=== PATIENT | male | born 1935 | race Two or more races ===

== ENCOUNTER 2020-10-27 13:23 | Inpatient (IN) | payer MEDICARE, OTHER ==
[2020-10-27] VITALS (22 sets, daily range): BP systolic 116–161; BP diastolic 74–97
[~2020-10-27] VITALS: Ht 172.7 cm; Wt 64.0 kg
--- NOTE | 2020-10-27 13:47 | NUR ---
TELEMED STROKE REQUEST DONE
--- NOTE | 2020-10-27 14:00 | NUR ---
THE PATIENT IS [id number] FROM [facility] FOR NOTED L SIDED WEAKNESS AND MORE ALTERED. BG 177 UNKNOWN LKW. 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 THE PATIENT IS ASSESED BY ER MD, CALLED CODE STROKE, CT DONE, LAB DONE. AT THE BEDSIDE. WILL CONTINUE TO MONITOR.
[2020-10-27 14:06] LABS: BASOPHILS # (AUTO) 0.1 /CMM (0.0-0.2); BASOPHILS % (AUTO) 0.7 % (0.0-2.0); EOSINOPHILS % (AUTO) 0.1 % (0.0-6.0); HEMATOCRIT 36 % (39-51); LYMPHOCYTES # (AUTO) 1.5 /CMM (0.8-4.8); LYMPHOCYTES % (AUTO) 10.4 % (20.0-44.0); MEAN CORPUSCULAR HGB CONC 32 g/dl (31.0-36.0); MEAN CORPUSCULAR VOLUME 80 fL (80-96); MONOCYTES # (AUTO) 0.6 /CMM (0.1-1.30); MONOCYTES % (AUTO) 3.9 % (2.0-12.0); NEUTROPHILS # (AUTO) 12.2 /CMM (1.8-8.9); NEUTROPHILS % (AUTO) 84.9 % (43.0-81.0); PLATELET COUNT (AUTO) 304 /CMM (150-450); RED BLOOD CELL COUNT(AUTO) 4.53 MIL/uL (4.5-6.0); WHITE BLOOD COUNT (AUTO) 14.3 K/uL (4.3-11.0)
[2020-10-27 14:07] LABS: HEMOGLOBIN 11.6 g/dL (13.5-17.5)
[2020-10-27 14:14] LABS: CALCIUM, SERUM 9.9 mg/dL (8.5-10.1); CARBON DIOXIDE 30 mmol/L (21-32); CHLORIDE 101 mmol/L (98-107); CREATININE 1.3 mg/dL (0.6-1.3); GLUCOSE 172 mg/dL (74-106); POTASSIUM 3.8 mmol/L (3.5-5.1); SODIUM SERUM 140 mmol/L (136-145); UREA NITROGEN, BLOOD 20 mg/dL (7-18)
[2020-10-27] MEDS ORDERED: NICARDIPINE IN DEXTROSE,ISO-OS 200 ML IV ONE (14:19)
[2020-10-27 14:20] LABS: ALANINE AMINOTRANSFERASE 6 U/L (12-78); ALBUMIN 3.2 g/dL (3.4-5.0); ALKALINE PHOSPHATASE 77 U/L (46-116); ASPARTATE AMINOTRANSFERASE 9 U/L (15-37); BILIRUBIN,DIRECT 0.1 mg/dL (0.0-0.2); BILIRUBIN,TOTAL 0.5 mg/dL (0.2-1.0); TOTAL PROTEIN, SERUM 8.5 g/dL (6.4-8.2)
--- NOTE | 2020-10-27 14:28 | NUR ---
STARTED CARDENE NACL AT 5MG/HR. WILL CONTINUE TO MONITOR.
[2020-10-27] MEDS ORDERED: NICARDIPINE IN NACL, ISO-OSM 200 ML IV PRN (14:30)
[2020-10-27 14:37] LABS: SERUM AMMONIA < 10 umol/L (11-32)
--- NOTE | 2020-10-27 14:41 | NUR ---
COVID SWABS DONE AND SENT TO THE LAB.
--- NOTE | 2020-10-27 14:43 | NUR ---
ICU 261 ASSIGNED
[2020-10-27 14:51] LABS: CHOLESTEROL 183 mg/dL (<200); HDL CHOLESTEROL 43 mg/dL (40-60); LDL 111 mg/dL (0-99); TRIGLYCERIDES 110 mg/dL (30-150)
[2020-10-27] MEDS ORDERED: OMEP20CA15 PO (15:07)
[2020-10-27] MEDS ORDERED: POTA20PA3 PO (15:07)
[2020-10-27] MEDS ORDERED: CRAN3875 PO (15:07)
[2020-10-27] MEDS ORDERED: CYPR4TAB44 PO (15:07)
[2020-10-27] MEDS ORDERED: CHOL200013 PO (15:07)
[2020-10-27] MEDS ORDERED: ACET-2605 PO (15:07)
[2020-10-27] MEDS ORDERED: NETA2.5D3 OP (15:07)
[2020-10-27] MEDS ORDERED: CYAN10006 IJ (15:07)
[2020-10-27] MEDS ORDERED: CRAN425C6 PO (15:07)
[2020-10-27] MEDS ORDERED: METF-442 PO (15:07)
[2020-10-27] MEDS ORDERED: FERR325T23 PO (15:07)
[2020-10-27] MEDS ORDERED: BRIM5DRO2 LEFTEYE (15:07)
[2020-10-27] MEDS ORDERED: LUBI24CA5 PO (15:07)
[2020-10-27] MEDS ORDERED: DONE5TAB34 PO (15:07)
[2020-10-27] MEDS ORDERED: LINA145C PO (15:07)
[2020-10-27] MEDS ORDERED: AMIN887L PO (15:07)
[2020-10-27] MEDS ORDERED: NA P133E RC (15:07)
[2020-10-27] MEDS ORDERED: CARV12.5 PO (15:07)
[2020-10-27] MEDS ORDERED: ROSU5TAB PO (15:07)
[2020-10-27] MEDS ORDERED: SERT25TA PO (15:07)
[2020-10-27] MEDS ORDERED: LINA5TAB PO (15:07)
[2020-10-27] MEDS ORDERED: ACET325T53 PO (15:07)
[2020-10-27] MEDS ORDERED: SODIUM CHLORIDE (15:07)
[2020-10-27] MEDS ORDERED: ONDA4TAB5 PO (15:07)
[2020-10-27] MEDS ORDERED: D-MA1POW PO (15:07)
[2020-10-27] MEDS ORDERED: PILO15DR7 LEFTEYE (15:07)
[2020-10-27] MEDS ORDERED: DORZ10DR LEFTEYE (15:07)
[2020-10-27] MEDS ORDERED: GUAI-755 PO (15:07)
[2020-10-27] MEDS ORDERED: MAGN64TA13 PO (15:07)
[2020-10-27] MEDS ORDERED: METH1TAB30 PO (15:07)
[2020-10-27] MEDS ORDERED: ASPI-1169 PO (15:07)
[2020-10-27] MEDS ORDERED: MEMA5TAB PO (15:07)
[2020-10-27] MEDS ORDERED: LACT1CAP61 PO (15:07)
[2020-10-27] MEDS ORDERED: BISA10SU11 RC (15:07)
[2020-10-27] MEDS ORDERED: AMLO5TAB4 PO (15:07)
[2020-10-27] MEDS ORDERED: ALBU8.5H8 IH (15:07)
[2020-10-27] MEDS ORDERED: ONDANSETRON HCL/PF 4 MG/2 ML VIAL IVP PRN (15:30)
--- NOTE | 2020-10-27 16:00 | NUR ---
RN ADMITTING NOTE RECEIVED PATIENT TIN BED, A/OX1, ABLE TO BLINK WITH EYES AND SQUEEZE THE HAND WITH L AND R ARMS, STATUS POST STROKE, ON NC AT 3L, SPO2 IS 1000%, SR ON TELE MONITOR, PACEMAKER ON L CHEST WALL NOTED, L UA MIDLINE, PATENT AND INTACT, SAFETY MEASURES IN PLACE, BED IS LOCKED, IN LOWEST POSITION,, WILL CONT TO MONITOR
--- NOTE | 2020-10-27 16:04 | NUR ---
THE PATIENT IS TRANFSERED TO ICU PER ACLS PRTOCOL. THE PATIENT LEFT ER IN STABLE CONDITION.
--- NOTE | 2020-10-27 16:12 | NUR ---
CHRISTY received consult from evelio medrano. CHRISTY will follow up at a later time. Addendum: 10/27/20 at 1612 by VENTURA HARRISON CHRISTY received consult for code stroke. CHRISTY will follow up at a later time.
--- NOTE | 2020-10-27 16:15 | NUR ---
FAMILY AT BED SITE, P[ER PT'S MERCEDES, SHE WANTS DNR/DNI STATUS FOR HIM
[2020-10-27] MEDS: BLOOD SUGAR DIAGNOSTIC 1 EACH STRIP IN SCH (17:22)
--- NOTE | 2020-10-27 17:25 | NUR ---
BLOOD SUGAR 162, FAMILY AT BED SITE, REFUSING INSULIN FOR PATIENT, WILLING TO DISCUSS COMFORT MEASURES ONLY WITH
[2020-10-27] MEDS ORDERED: BLOOD SUGAR DIAGNOSTIC 1 EACH STRIP IN SCH (17:30)
--- NOTE | 2020-10-27 19:00 | NUR ---
RN CLOSING NOTES PATIENT REMAINS IN BED, NO ACUTE CHANGES IN NEURO STATUS, FOLLOWS COMMAND, ABLE TO MOVE ARMS, TRYING TO SPEAK, FAMILY AT BED SITE, SPOKE TO DR COSTELLO, DNR/DNI STATUS, WILL HAVE SWALLOW EVAL TOMORROW, BASED ON THAT FUTURE PLAN FOR CARE, SAFETY MEASURES IMPLEMENTED, BED IS LOCKED, IN LOWEST POSITION, WILL ENDORSE TO PM SHIFT RN FOR CORBIN
--- NOTE | 2020-10-27 19:30 | NUR ---
BOWLING ALLEY FLOORS INSTALLER OPENING NOTE RECEIVED ST HELENIAN SPEAKING PATIENT A/O X1 IN NO S/SX OF ACUTE DISTRESS AT THIS TIME. NO SOB NOTED. PATIENT'S BREATHING IS EVEN AND UNLABORED. PATIENT IS ON 2L OF OXYGEN VIA NC; TOLERATING WELL WITH O2 SAT OF 99% AT THE TIME OF RECEIVED.PATIENT ON TELE MONITORING READING SINUS RHYTHM HR IS @87BPM AT THE TIME OF RECEIVED. PATIENT CURRENTLY ON NPO. NOTED IV SITE ON R UA MIDLINE ;PATENT, INTACT AND FLUSHING WELL; NO S/S OF INFECTION OR INFILTRATION, NO RUNNING IVF.SAFETY MEASURES HAVE BEEN PROVIDED AND IMPLEMENTED. PATIENT BED ALARM IS ON. HEAD OF BED ELEVATED. BED IS LOCKED, IN LOWEST POSITION AND SIDE RAILS UP. CALL LIGHT WITHIN REACH OF THE PATIENT. APPLICABLE ISOLATION PRECAUTIONS IN PLACE. WILL CONTINUE TO MONITOR AND REASSESS FOR ANY CHANGES AND WILL CARRY OUT ANY ONGOING AND ACTIVE MD ORDER.
--- NOTE | 2020-10-27 20:31 | NUR ---
RN NOTES COMMUNICATED WITH ONCORIANA ( XIOMY,WATER CHASER) PROVIDED ALL PETINENT INFO ABOUT PT. VERIFIED IF FLUIDS SHOULD BE GIVEN , PT ON NPO WITH BLOOD SUGAR CHECK Q6H. DOMONIQUE ARRIETA SAID NO FLUIDS FOR NOW. SWALLOW EVAL PARTH. DO ACCU CHECK Q6, NO COVERAGE FOR NOW. CLOTHING BUSHELER MADE AWARE. WILL CONTINUE TO MONITOR AND ASSES THROUGHOUT THE SHIFT
--- NOTE | 2020-10-27 22:00 | NUR ---
RN NOTES PATIENT REMAINS IN NO ACUTE RESPIRATORY DISTRESS AT THIS TIME, NO CHANGES TO CONDITION/STATUS. CORPORATE DIRECTOR OF HUMAN RESOURCES WELL AWARE. WILL CONTINUE TO MONITOR AND REASSESS FOR ANY CHANGES THROUGHOUT THE SHIFT
--- NOTE | 2020-10-27 22:04 | NUR ---
RN NOTES COMMUNICATED WITH DOMONIQUE ARRIETA (XIOMY,RETAIL CLIENT MANAGER) ADVISED IF CARDENE NEEDS TO BE STARTED, PROVIDED PT' CURRENT RUNNING V/S SINCE 1930, DOMONIQUE ARRIETA SAID NOT AT THIS TIME, JUST CONTINUE TO MONITOR. IF SBP IS IS EQUAL OR GREATER 160 INFORM HIM AND WILL REVISIT PLAN. SENIOR DATASTAGE DEVELOPER MADE AWARE. WILL CONTINUE TO MONITOR AND ASSESS THROUGHOUT THE SHIFT.
[2020-10-28] VITALS (94 sets, daily range): BP systolic 108–194; BP diastolic 46–113
[2020-10-28] MEDS: BLOOD SUGAR DIAGNOSTIC 1 EACH STRIP IN SCH ×4 (00:16→18:05)
--- NOTE | 2020-10-28 01:44 | NUR ---
RN NOTES COMMUNICATED WITH DOMONIQUE ( STERLING STAUFFER) PROVIDED ALL PETINENT INFO ABOUT PT. ADVISED PT'S CURRENT BP READING. DOMONIQUE ARRIETA ORDERED TO START NICARDIPINE DRIP. CULINARY ARTIST MADE AWARE. WILL CONTINUE TO MONITOR AND ASSESS THROUGHOUT THE SHIFT.
[2020-10-28] MEDS: NICARDIPINE IN NACL, ISO-OSM 200 ML IV PRN ×9 (01:45→22:44)
--- NOTE | 2020-10-28 02:30 | NUR ---
RN NOTES NICARDIPINE DRIP HELD @0230, BP: 136/86 HR: 110, ROTARY KILN OPERATOR MADE AWARE. WILL CONTINUE TO ASSESS AND MONITOR THROUGHOUT THE SHIFT.
--- NOTE | 2020-10-28 03:00 | NUR ---
RN NOTES NO CHANGES IN PATIENT CONDITION AT THIS TIME PATIENT VITALS STABLE, NO SIGNS OF ACUTE RESPIRATORY DISTRESS. PATIENT STILL IN BED SLEEPING COMFORTABLY. NO COMPLAINTS OF PAIN OR ANY DISCOMFORT AT THIS TIME. WILL CONTINUE TO MONITOR AND REASSESS FOR ANY CHANGES THROUGHOUT THE SHIFT.
--- NOTE | 2020-10-28 03:30 | NUR ---
RN NOTES NICARDIPINE DRIP RESUMED @0330,BP: 165/100 HR: 110 , FIBER DESIGNER MADE AWARE. WILL CONTINUE TO ASSESS AND MONITOR THROUGHOUT THE SHIFT.
--- NOTE | 2020-10-28 05:00 | NUR ---
RN NOTES NICARDIPINE DRIP TITRATED DOWN FROM 7.5 TO 5, BP: 116/73 HR: 103 , CORPORATE TRAVEL AGENT MADE AWARE. WILL CONTINUE TO ASSESS AND MONITOR THROUGHOUT THE SHIFT.
--- NOTE | 2020-10-28 07:03 | NUR ---
COOKER SODA CLOSING NOTES PATIENT REMAINS IN ROOM IN NO SIGNS OF RESPIRATORY DISTRESS; STILL ON 2L OF O2 VIA NC;TOLERATING WELL SATURATING @ 99% SP02 AT THE END OF SHIFT. TELE MONITORS READING SR-ST WITH OCCASIONAL A FACING AT THE END OF SHIFT. STILL ON NPO. IV ACCESS (L UA MIDLINE) MAINTAINED INTACT, SECURED AND FLUSHING WELL;NO SITE REDNESS OR INFILTRATION. WITH ONGOING NICARDIPINE DRIP @ 7.5 MC/HR; MONITORED AND TITRATED PER PROTOCOL. ALL DUE MEDS GIVEN ORDERED & SCHEDULED ; PATIENT TOLERATED WELL. SAFETY MEASURES IMPLEMENTED, BED IN LOWEST POSITION, LOCKED, SIDE RAILS UP, CALL LIGHT WITHIN REACH. ALL NEEDS AND ORDERS ADDRESSED DURING THE SHIFT. PATIENT KEPT CLEAN AND COMFORTABLE WITHIN THE SHIFT. PATIENT ENDORSED TO INCOMING SHIFT RN WITH STABLE VITAL SIGN AND FOR CONTINUITY OF CARE.
--- NOTE | 2020-10-28 07:46 | NUR ---
RN NOTES NOTED IV LINE ON L UA MIDLINE TO BE LEAKING AND NON-PATENT. FACILITATED CHANGE AND REINSERTION OF IV LINE @ R FA #20. PROGRAM DEVELOPMENT SPECIALIST MADE AWARE. ENDORSED TO AM SHIFT RN.
--- NOTE | 2020-10-28 08:00 | NUR ---
rn notes received patient on o2-2l nc, no acute respiratory distress, cymraes speaker, patient lethargic, and drowsy at this time. infusing nicardipine at 7.5 mg/hr on right FA intact, total care, dvt pump on, assist turn and reposition q 2 hr,. patient incontinent, sacral redness, and scrotum. will monitoring.
[2020-10-28] MEDS: PANTOPRAZOLE 40 MG VIAL IV SCH (08:54)
--- NOTE | 2020-10-28 09:00 | NUR ---
RN NOTES SEEN PATIENT OT, SE, NEUROSURGEON. DONE US OF CAROTID ARTERIES BOTH SIDE.
--- NOTE | 2020-10-28 12:25 | NUR ---
SS Note: SS Consult received for Code Stroke. SW spoke to the pt.'s nurse to discuss level of consciousness. Per nurse, the pt. is not interviewable at this time. SW will follow up at later time to complete stroke depression scale.
--- NOTE | 2020-10-28 13:35 | NUR ---
rn notes Bs -167 mg/dl, no coverge , infusing nicardipine drip titrated 13.5 mg/kg/hr on right fa intact, daily bed bath, and mouth care done, assist turn and reposition q 2 h. family next to the bed.
--- NOTE | 2020-10-28 14:45 | NUR ---
rn notes patient eat one jell-o, and state" I wanted to be turn on my right side , and go outside". per family wanted to speak hospitalist again, md Banks notified. family talking with hospice office coordinator at thia time.
--- NOTE | 2020-10-28 16:28 | NUR ---
Rn notes patient seen [facility]ia neurologist Dr GÓMEZ and order is CT head w/o contrast.
[2020-10-28] MEDS ORDERED: Z GUARD REMEDY 2 OZ OINT TP PRN (17:30)
--- NOTE | 2020-10-28 18:30 | NUR ---
RN notes BS- 199 mg/dl, due mediction administered, v/s wnl, patient still same, no changes, npo, no acute respiratory distress, q2 hr neurological assessment dome, patient unable to hold water drullin from mouth, left side upper and lower etremities unamle to elevate. but feeling when touches.
[2020-10-29] VITALS (68 sets, daily range): BP systolic 120–162; BP diastolic 58–91
[2020-10-29] MEDS: BLOOD SUGAR DIAGNOSTIC 1 EACH STRIP IN SCH ×5 (00:15→23:50)
--- NOTE | 2020-10-29 02:18 | NUR ---
CARDENE DRIP TURNED OFF AT 0200. BP AT THE TIME WAS 130/67. BP STABLE AND WITHIN PARAMETERS 15 MINUTES AFTER DRIP BEING TURNED OFF. CURRENTLY BP IS 126/66.
--- NOTE | 2020-10-29 07:57 | NUR ---
WOUND CARE CONSULT: PT PRESENTS WITH MULTIPLE SKIN ISSUES INCLUDING SACRAL DEEP TISSUE INJURY IN EVOLUTION, RASHES TO GLUTEAL CREASE, PERINEUM, SCROTUM AND GROIN FOLD AREAS WITH RAISED LESIONS TO GROIN FOLDS, ALL PRESENT ON ADMISSION. RECOMMEND SURGICAL CONSULT. DR KOO NOTIFIED OF CONSULT REQUEST. FIRST STEP LOW AIRLOSS MATTRESS IS ON ORDER. RECOMMENDATIONS MADE FOR SKIN PROTECTION. DISCUSSED WITH NURSING STAFF. IN AGREEMENT WITH PLAN OF CARE. Addendum: 10/29/20 at 0800 by GILL WALLACE WNDNU Amended: Links added.
--- NOTE | 2020-10-29 08:00 | NUR ---
rn notes received patient on o2 2lnc, bedside monitor shows sr, no acute respiratory distress, vss, patient open eyes when called name,still weak, left arm dropped during assessment, moves bilateral legs. refused pain. patient state he is hungry, able to hold water in the mouth, with little drooling. midline access on right UA, and FA intact, seen hospitalist, OT, PT. wound nurse. due medication administered.
--- NOTE | 2020-10-29 09:08 | NUR ---
Spot Machine Operator follow-up: Spot Machine Operator consult request follow-up for code stroke. SW spoke to SHANNA Escudero at ICU regarding the patient's current level of consciousness. Per nurse, patient is not ready to be interviewed at this time. SW will continue to follow up with patients nurse to arrange a consult.
[2020-10-29] MEDS: PANTOPRAZOLE 40 MG VIAL IV SCH (09:12)
[2020-10-29] MEDS: IV 1/2NS 1000 ML 1,000 ML IV PRN ×2 (09:59→21:04)
--- NOTE | 2020-10-29 12:00 | NUR ---
rn notes bs-176 mg/dl, patient tolerated lunch 100 % with assist, infusing ns at80 ml/hr, also seen swallow caltrans equipment operator.
[2020-10-29] MEDS: CLOTRIMAZOLE 1% 15 GM TUBE TP SCH ×2 (12:35→18:11)
--- NOTE | 2020-10-29 15:33 | NUR ---
rn notes patient ok to transfer.
--- NOTE | 2020-10-29 16:30 | NUR ---
rn notes Transferred patient to the tele 3W, repost given RN. patient stable, no acute respiratory distress, VSS, refused pain . Endorsed RN follow up plan of care.
--- NOTE | 2020-10-29 16:30 | NUR ---
rn notes BS_164,mg/dl, no coverage.
--- NOTE | 2020-10-29 18:00 | NUR ---
Patient transferred from ICU reported by Nikki/SHANNA. Noticed bp-168/82, p-108. Received new order Hydralazine 25mg PO Q6 prn. Noted and carry out.
[2020-10-29] MEDS ORDERED: hydrALAZINE HCL 25 MG TABLET PO PRN (18:30)
--- NOTE | 2020-10-29 18:30 | NUR ---
RN Closing note Patient in bed, non verbal, able to responds all stimuli. Respiratory even and unlabored with oxygen at 2LPM. Skin is warm to touch keep clean/dry, intact IV site running IV fluid 1/2NS at 80 ml/hr. Keep elevated HOB for ensure airway and aspiration precaution, also lowest bed position for safety. Call light within reach, will endorse to night order selector.
--- NOTE | 2020-10-29 19:20 | NUR ---
DIRECTOR OF COMMUNITY CENTER OPENING NOTES: RECEIVED PATIENT IN BED, AWAKE, DOES NOT TALK. NO S/S OF DISTRESS NOTED. CALL LIGHT WITHIN REACH. BED ALARM ON. BED IN LOWEST AND LOCKED POSITION. HOB ELEVATED AT 30 DEGREES. PATIENT OPENS HIS EYES WHEN CALLED HIS NAME.
--- NOTE | 2020-10-29 23:49 | NUR ---
BLOOD SUGAR NEJAMTR=321, NO COVERAGE INSULIN GIVEN.
[2020-10-30] VITALS: BP 148/81
[2020-10-30 04:00] VITALS: BP 160/97
[2020-10-30] MEDS: BLOOD SUGAR DIAGNOSTIC 1 EACH STRIP IN SCH ×3 (05:50→17:04)
--- NOTE | 2020-10-30 05:50 | NUR ---
blood sugar bhalgde=[id number],no coverage needed.
[2020-10-30 06:43] LABS: BASOPHILS % (AUTO) 0.3 % (0.0-2.0); EOSINOPHILS % (AUTO) 1.6 % (0.0-6.0); HEMATOCRIT 30 % (39-51); HEMOGLOBIN 9.7 g/dL (13.5-17.5); LYMPHOCYTES # (AUTO) 2.9 /CMM (0.8-4.8); LYMPHOCYTES % (AUTO) 25.7 % (20.0-44.0); MEAN CORPUSCULAR HGB CONC 32 g/dl (31.0-36.0); MEAN CORPUSCULAR VOLUME 79 fL (80-96); MONOCYTES # (AUTO) 0.8 /CMM (0.1-1.30); MONOCYTES % (AUTO) 7.5 % (2.0-12.0); NEUTROPHILS # (AUTO) 7.3 /CMM (1.8-8.9); NEUTROPHILS % (AUTO) 64.9 % (43.0-81.0); PLATELET COUNT (AUTO) 286 /CMM (150-450); RED BLOOD CELL COUNT(AUTO) 3.85 MIL/uL (4.5-6.0); WHITE BLOOD COUNT (AUTO) 11.2 K/uL (4.3-11.0)
--- NOTE | 2020-10-30 07:30 | NUR ---
PLATE CUTTER NOTES PT IN BED, ASLEEP, EASY TO AROUSE, NON VERBAL, NODS WHEN GREETED, NO SIGN OF PAIN OR DISTRESS, CALL LIGHT WITHIN REACH, ASSISTED WITH BREAKFAST, ASPIRATION PRECAUTIONS OBSERVED, KEPT WARM AND COMFORTABLE.
[2020-10-30 08:00] VITALS: BP 173/92
[2020-10-30 08:03] LABS: ALBUMIN 2.8 g/dL (3.4-5.0); BILIRUBIN,TOTAL 0.3 mg/dL (0.2-1.0); CALCIUM, SERUM 9.1 mg/dL (8.5-10.1); MAGNESIUM 1.6 mg/dL (1.8-2.4); PHOSPHORUS 1.9 mg/dL (2.5-4.9); POTASSIUM 3.1 mmol/L (3.5-5.1); TOTAL PROTEIN, SERUM 7.3 g/dL (6.4-8.2)
[2020-10-30] MEDS: PANTOPRAZOLE 40 MG VIAL IV SCH (08:12)
[2020-10-30] MEDS: CLOTRIMAZOLE 1% 15 GM TUBE TP SCH ×2 (08:14→16:28)
--- NOTE | 2020-10-30 09:07 | NUR ---
FORM COVERER NOTES PT SEEN BY DR. COSTELLO, ORDERS GIVEN, NOTED AND CARRIED OUT.
[2020-10-30] MEDS ORDERED: POTASSIUM CL. PREMIX PERIPHER. 50 ML IV SCH (09:30)
[2020-10-30] MEDS ORDERED: hydrALAZINE HCL 25 MG TABLET PO PRN (09:30)
[2020-10-30] MEDS: IV 1/2NS 1000 ML 1,000 ML IV PRN (09:49)
[2020-10-30] MEDS: Magnesium 1GM/D5W 100ML PREMIX 100 ML IV SCH ×2 (09:50→10:56)
[2020-10-30] MEDS: POTASSIUM CL. PREMIX PERIPHER. 50 ML IV SCH ×4 (09:50→13:51)
[2020-10-30] MEDS ORDERED: Magnesium 1GM/D5W 100ML PREMIX 100 ML IV SCH (10:30)
[2020-10-30 12:00] VITALS: BP 157/93
[2020-10-30] MEDS: POTASSIUM PHOSPHATE MM 7.5 MMOL in IV NS 0.9% 100 ML IV SCH ×2 (12:10→15:40)
[2020-10-30 16:00] VITALS: BP 152/96
--- NOTE | 2020-10-30 18:18 | NUR ---
RN MS NOTES PT IN BED, ASLEEP, EASY TO AROUSE, OPENS EYES, NON VERBAL, NO FACIAL GRIMACING, NOT IN RESPIRATORY DISTRESS, CALL LIGHT WITHIN REACH, ASSISTED WITH DINNER, ASPIRATION PRECAUTIONS OBSERVED, PM CARE PROVIDED, SEEN BY DR. COSTELLO, DISCHARGE ORDER GIVEN, DISCHARGE AND MEDICATION INSTRUCTIONS PROVIDED TO ADMITTING SHANNA MARRERO OF [facility], PT HAS NO BELONGINGS, SKIN AND WOUND TREATMENTS DONE, PREPARATION SUPERVISOR FREEZING TIME SCHEDULED AT 8PM, FAMILY INFORMED.
--- NOTE | 2020-10-30 19:10 | NUR ---
MS RN OPENING NOTES: RECEIVED PATIENT IN BED, ASLEEP, AROUSABLE.NO S/S OF DISTRESS NOTED. BED ALARM ON. BED IN LOWEST AND LOCKED POSITION. D/C PACKET PREPARED AND PRINTED BY SHANNA BUSTOS AND SHE ALREADY GAVE REPORTS TO OTHER FACILITY SHANNA MARRERO. PATIENT IS GOING TO BE PICKED-UP AT 2000 TONIGHT AND GOING TO ROOM28 A.
[2020-10-30 20:42] VITALS: BP 168/73
[2020-10-30] MEDS ORDERED: hydrALAZINE HCL IV 20 MG VIAL IV PRN (21:00)
--- NOTE | 2020-10-30 21:01 | NUR ---
RECEIVED A CALL FROM PATIENT'S , INFORMED PATIENT IS BEING PICKED=UP AND GOING TO THE SOR. RIGHT UPPER ARM AND LEFT UPPER ARM MIDLINES D/C, TIP IS INTACT. RIGHT FORE ARM IV D/C TIP IS INTACT. NO BLEEDING NOTED.
== END 2020-10-30 22:57 | disposition hospice, inpatient (51) | DRG 64 ==
LOC: ER 13:40 → ICU 15:09 → TELE 10-29 16:29 → MED 10-30 09:55
PROVIDERS: ADMIT Internal Medicine; ATTEND Internal Medicine
PROC: 05H933Z Insertion of Infusion Device into Right Brachial Vein, Percutaneous Approach (ICD-10-PCS; principal; 2020-10-28)
DX: I61.5 Nontraumatic intracerebral hemorrhage, intraventricular (principal); N17.0 Acute kidney failure with tubular necrosis; G93.41 Metabolic encephalopathy; D68.59 Other primary thrombophilia; G81.94 Hemiplegia, unspecified affecting left nondominant side; C34.90 Malignant neoplasm of unspecified part of unspecified bronchus or lung; R40.2212 Coma scale, best verbal response, none, at arrival to emergency department; R29.728 NIHSS score 28; R40.2362 Coma scale, best motor response, obeys commands, at arrival to emergency department; R40.2142 Coma scale, eyes open, spontaneous, at arrival to emergency department; I48.91 Unspecified atrial fibrillation; N18.9 Chronic kidney disease, unspecified; Z66 Do not resuscitate; Z20.822 Contact with and (suspected) exposure to COVID-19; F03.90 Unspecified dementia, unspecified severity, without behavioral disturbance, psychotic disturbance, mood disturbance, and anxiety; R13.12 Dysphagia, oropharyngeal phase; Z86.73 Personal history of transient ischemic attack (TIA), and cerebral infarction without residual deficits; Z95.0 Presence of cardiac pacemaker; I12.9 Hypertensive chronic kidney disease with stage 1 through stage 4 chronic kidney disease, or unspecified chronic kidney disease; I25.10 Atherosclerotic heart disease of native coronary artery without angina pectoris; I67.2 Cerebral atherosclerosis; I70.0 Atherosclerosis of aorta
CPT/HCPCS: 36415; 70450-TC; 71045-TC; 71250-TC; 80048-TC; 80053-TC; 80061-TC; 80076-TC; 82140-TC; 82962-TC; 83605-TC; 83735-TC; 84100-TC; 84443-TC; 84484-TC; 85025-TC; 85385-TC; 85730-TC; 87040-TC; 87081-TC; 92526; 92611-TC; 93880-TC; 94799-TC; 97110-TC; 97112-TC; 97530-TC; C9113; G0378; J0360; J3475; J3480; J3490; J7030; J7050; U0003